=== PATIENT | male | born 1980 | race African-American/Black ===

== ENCOUNTER 2016-10-26 12:57 | Emergency (ER) | payer OTHER ==
[~2016-10-26] VITALS: Ht 180.3 cm; Wt 104.3 kg
[~2016-10-26 12:57] MED LIST: AZITHROMYCIN250 MG ORAL; CIPROFLOXACIN500 M2 ORAL
[2016-10-26] MEDS ORDERED: NORCO 5-325 TA1 EAC1 ORAL (14:28)
[2016-10-26] MEDS ORDERED: IBUPROFEN600 MG ORAL (14:28)
[2016-10-26 14:42] VITALS: BP 149/97
--- NOTE | 2016-10-26 15:40 | Emergency Room Report ---
History of Present Illness General Chief Complaint: Lower Extremity Injury Source: Patient Present Illness HPI The patient is a 36-year-old male presenting with left foot pain which began 2 days prior. He states that a heavy TV fell onto his foot from waist height. He noticed pain and swelling to the area. It is now described as a 7/10 dull ache and does not radiate. Pain worse with walking and touch. He denies previous injury to the area. he denies any numbness or tingling. He denies any other symptoms including N, V, F, chills, rash, calf pain, among others Allergies: Coded Allergies: No Known Allergies (Unverified , 01/28/15) Patient History Past Medical History: see triage record Pertinent Family History: none Reviewed Nursing Documentation: PMH: Agreed, PSxH: Agreed Nursing Documentation-PMH Hx Hypertension: Yes Hx Diabetes: Yes Review of Systems All Other Systems: negative except mentioned in HPI Physical Exam Vital Signs Date Time Temp Pulse Resp B/P Pulse Ox O2 Delivery O2 Flow Rate FiO2 10/26/16 13:01 97.5 98 14 149/97 100 Room Air Sp02 EP Interpretation: reviewed, normal General Appearance: no apparent distress, alert, GCS 15, non-toxic Head: normocephalic, atraumatic Eyes: bilateral eye PERRL, bilateral eye normal inspection ENT: hearing grossly normal, normal pharynx, no angioedema, normal voice Musculoskeletal: normal range of motion, no calf tenderness, swelling, tender - TTP over the L lateral foot Neurologic: alert, oriented x3, responsive, motor strength/tone normal, sensory intact, speech normal Psychiatric: judgement/insight normal, memory normal, mood/affect normal, no suicidal/homicidal ideation Skin: normal color, warm/dry, well hydrated Procedures Splinting Splinting : Consent: Verbal Location: L foot Hand-Made Type: plaster Splint: poserior short Pre-Proc Neuro Vasc Exam: normal Post-Proc Neuro Vasc Exam: normal Patient Tolerated: Well Complications: None Medical Decision Making PA Attestation Dr. Hopkins is my supervising physician. Patient management was discussed with my supervising physician Diagnostic Impression: Primary Impression: Foot fracture, left Qualified Codes: S92.902A - Unspecified fracture of left foot, initial encounter for closed fracture ER Course The patient is a 36-year-old male presenting with left foot pain Ddx considered include but not limited to sprain/strain, fracture, contusion PE: vitals WNL. NAD L foot: TTP with overlying edema to the L lateral foot. Full AROM of ankle and legs Xray shows chip fracture of the cuboid He is given pain medication and a short leg posterior splint placed with crutches he will followup with PMD. ER precautions given Other X-Ray Diagnostic Results Other X-Ray Diagnostic Results : X-Ray Ordered: L foot Date: October 26, 2016 EP Interpretation: Yes Findings: no dislocation, no soft tissue swelling, other - chip fracture of the cuboid Number of Views: 3 PA Scribe Text I am acting as scribe for my supervising physician. My supervising physician's interpretation of the L foot xrays are there are is a fracture of the cuboid Last Vital Signs Date Time Temp Pulse Resp B/P Pulse Ox O2 Delivery O2 Flow Rate FiO2 10/26/16 14:42 97.5 14 149/97 100 Room Air 10/26/16 13:01 98 Status: improved Disposition: HOME, SELF-CARE Condition: Improved Scripts Hydrocodone Bit/Acetaminophen 5-325* (NORCO 5-325 TABLET*) 1 Each Tablet 1 TAB ORAL Q6HR Y for For Pain, #10 TAB Prov: SHELBY GUILLEN 10/26/16 Ibuprofen* (MOTRIN*) 600 Mg Tablet 600 MG ORAL Q8H Y for For Pain, #30 TAB 0 Refills Prov: SHELBY GUILLEN.A. 10/26/16 Patient Instructions: Toe Fracture, Cast or Splint Care Additional Instructions: I discussed my findings with the patient. All questions and concerns have been answered. Treatment and medication compliance have been addressed. I advised the patient that they need to follow up with PMD in 3-5 days. Return to ED if pain remains or worsens, numbness or tingling occurs, new rash is noticed, fever is noticed, or if needed for any reason. Patient verbalized understanding of discharge instructions. SHELBY GUILLEN October 26, 2016 15:40
--- NOTE | 2016-10-27 10:08 | Diagnostic Imaging Report ---
Indication: PAIN, swelling, trauma status post heavy object dropped on foot 3 days ago Technique: 3 views left foot Comparison: none Findings: No acute fractures. No dislocations. The joint spaces are preserved. No radiopaque foreign body. There are vascular calcifications. Impression: No acute bony trauma
== END 2016-10-26 14:46 | disposition home or self-care (01) ==
LOC: EMR 13:22
DX: S92.902A Unspecified fracture of left foot, initial encounter for closed fracture (principal); W22.8XXA Striking against or struck by other objects, initial encounter; Y92.89 Other specified places as the place of occurrence of the external cause; I10 Essential (primary) hypertension; E11.9 Type 2 diabetes mellitus without complications
CPT/HCPCS: 29515; 99284

== ENCOUNTER 2019-01-05 20:29 | Emergency (ER) | payer MEDICARE, MEDICAID ==
[~2019-01-05] VITALS: Ht 177.8 cm; Wt 95.3 kg
[~2019-01-05 20:29] MED LIST changes: +IBUPROFEN600 MG ORAL; +NORCO 5-325 TA1 EAC1 ORAL
--- NOTE | 2019-01-05 21:26 | Emergency Room Report ---
History of Present Illness General Chief Complaint: Pain Source: Patient, Medical Record Present Illness HPI 38-year-old male with history of renal failure on hemodialysis. He presents with left ankle pain. He said that he stepped into a hole in the street after he got home from dialysis. He said he hurt it somewhat but today woke up and is more swollen and there is some fluid blister to the ankle area. Worse with walking. Pain is 7 out of 10. No fever chills but no drainage. Allergies: Coded Allergies: No Known Allergies (Unverified , 01/28/15) Patient History Past Medical History: see triage record, old chart reviewed, HTN, renal disease , dialysis Past Surgical History: other Pertinent Family History: none Social History: Denies: smoking Immunizations: other Reviewed Nursing Documentation: PMH: Agreed; PSxH: Agreed Nursing Documentation-PMH Hx Hypertension: Yes Hx Diabetes: Yes Review of Systems Eye: Denies: eye pain, blurred vision ENT: Denies: ear pain, nose congestion, throat swelling Respiratory: Denies: cough, shortness of breath Cardiovascular: Denies: chest pain, palpitations Gastrointestinal: Denies: abdominal pain, diarrhea, nausea, vomiting Musculoskeletal: Reports: joint pain, joint swelling; Denies: back pain Skin: Denies: rash Neurological: Denies: headache, numbness Endocrine: Denies: increased thirst, increased urine Hematologic/Lymphatic: Denies: easy bruising All Other Systems: negative except mentioned in HPI Physical Exam Vital Signs Date Time Temp Pulse Resp B/P (MAP) Pulse Ox O2 Delivery O2 Flow Rate FiO2 01/05/19 21:15 98.6 71 18 190/108 (135) 99 Room Air Vitals with high blood pressure Sp02 EP Interpretation: reviewed, normal General Appearance: well appearing, no apparent distress, alert Head: normocephalic, atraumatic Eyes: bilateral eye PERRL, bilateral eye EOMI ENT: hearing grossly normal, normal pharynx Neck: full range of motion, supple, no meningismus Respiratory: chest non-tender, lungs clear, normal breath sounds Cardiovascular #1: regular rate, rhythm, no murmur Gastrointestinal: normal bowel sounds, non tender, no mass, no organomegaly, no bruit, non-distended Musculoskeletal: back normal, normal range of motion, other - left Ankle: Edema and fluid blister to the lateral aspect. Pulse normal. Psychiatric: mood/affect normal Medical Decision Making Diagnostic Impression: Primary Impression: Left ankle sprain Qualified Codes: S93.402A - Sprain of unspecified ligament of left ankle, initial encounter Additional Impression: Hypertension Qualified Codes: I10 - Essential (primary) hypertension ER Course Patient with an ankle sprain and edema to the ankle. No fracture dislocation. No evidence of any infection. Blood pressure improved. Will discharge home. Other X-Ray Diagnostic Results Other X-Ray Diagnostic Results : X-Ray ordered: Left ankle x-rays # of Views/Limited Vs Complete: 3 View Indication: Pain EP Interpretation: Yes Interpretation: no dislocation, no soft tissue swelling, no fractures Impression: No acute disease Electronically Signed by: León Tiwari MD Last Vital Signs Date Time Temp Pulse Resp B/P (MAP) Pulse Ox O2 Delivery O2 Flow Rate FiO2 01/05/19 21:15 98.6 71 18 190/108 (135) 99 Room Air Status: improved Disposition: HOME, SELF-CARE Condition: Stable Additional Instructions: Follow-up with your doctor in 7 days. Elevate ankle. Ice pack to the area. Return if worse. León Tiwari MD Jan 05, 2019 21:26
[2019-01-05] MEDS ORDERED: HYDROcodone/Acetamin 5/325 tab ORAL ONE (21:30)
--- NOTE | 2019-01-05 21:58 | Diagnostic Imaging Report ---
EXAM: XR Left Ankle Complete, 3 or More Views CLINICAL HISTORY: TRAUMA TECHNIQUE: Frontal, lateral and oblique views of the left ankle. COMPARISON: No relevant prior studies available. FINDINGS: Bones/joints: No acute fracture or traumatic malalignment. Soft tissues: Moderate swelling of the lateral malleolus. Vasculature: Vascular calcifications. IMPRESSION: 1. No acute fracture or traumatic malalignment. 2. Moderate swelling of the lateral malleolus.
[2019-01-05 22:15] VITALS: BP 192/93
== END 2019-01-05 22:15 | disposition home or self-care (01) ==
LOC: EMR 22:00
DX: S93.402A Sprain of unspecified ligament of left ankle, initial encounter (principal); I10 Essential (primary) hypertension; X58.XXXA Exposure to other specified factors, initial encounter; Y92.9 Unspecified place or not applicable; I12.9 Hypertensive chronic kidney disease with stage 1 through stage 4 chronic kidney disease, or unspecified chronic kidney disease; E11.22 Type 2 diabetes mellitus with diabetic chronic kidney disease; N18.9 Chronic kidney disease, unspecified; Z99.2 Dependence on renal dialysis
CPT/HCPCS: 99283

== ENCOUNTER 2020-06-28 05:21 | Emergency (ER) | payer MEDICARE, MEDICAID ==
[~2020-06-28] VITALS: Ht 180.3 cm; Wt 97.5 kg
--- NOTE | 2020-06-28 05:30 | NUR ---
ED Nurse Note: pt comes into the ED with , c/o generalized abdominal pain after 7 days of constipation. Pt was in [facility] for 2 weeks, 1 week ago due to covid symptoms. since leaving the hospital, pt has been constipated. pt is a dialysis pt on MWF. pt resting comfortably on stretcher, has hypertension, otherwise VS wNL. Line established: 20g in left AC, labs drawn and sent to lab. awaiting transport to [place]. will continue to monitor.
[2020-06-28] MEDS ORDERED: Fleet's Enema 133ml RECTAL ONE (05:45)
--- NOTE | 2020-06-28 05:49 | Emergency Room Report ---
History of Present Illness General Chief Complaint: Abdominal Pain Source: Patient (León Tiwari MD) Present Illness HPI This is a 40-year-old male with a history of high blood pressure diabetes and renal failure on hemodialysis. His hemodialysis days are Monday, Monday, and Monday. He presents with chief complaint of constipation abdominal pain. Onset for a week. He was admitted to [facility] for 2-1/2 weeks for Covid infection. He was discharged 8 days ago. He said he has not had a bowel movement for a week now. He was getting pain medication while he was in the hospital. His pain is now 5 out of 10. He tried lyvh-lay-dvojiky medication without any relief. Still has body aches and lack of taste. His smell was is coming back. He denies any fever chills but no cough or congestion. Nothing made it better. Nothing made it worse. (León Tiwari MD) Allergies: Coded Allergies: No Known Allergies (Unverified , 01/28/15) COVID-19 Screening Contact w/high risk pt: Yes Experienced COVID-19 symptoms?: Yes COVID-19 Testing performed COMPLAINT SPECIALIST: Yes - 1 week ago COVID-19 Screening: Negative COVID-19 COVID-19 Testing Source: nasal (León Tiwari MD) Patient History Past Medical History: see triage record, old chart reviewed, DM, HTN, renal disease, dialysis Past Surgical History: other Pertinent Family History: none Social History: Denies: smoking Immunizations: other Reviewed Nursing Documentation: PMH: Agreed; PSxH: Agreed (León Tiwari MD) Nursing Documentation-PMH Hx Hypertension: Yes Hx Diabetes: Yes Hx Dialysis: Yes - M,W,F (León Tiwari MD) Review of Systems Eye: Denies: eye pain, blurred vision ENT: Denies: ear pain, nose congestion, throat swelling Respiratory: Denies: cough, shortness of breath Cardiovascular: Denies: chest pain, palpitations Gastrointestinal: Reports: abdominal pain, constipation; Denies: diarrhea, nausea, vomiting Musculoskeletal: Denies: back pain, joint pain Skin: Denies: rash Neurological: Denies: headache, numbness Endocrine: Denies: increased thirst, increased urine Hematologic/Lymphatic: Denies: easy bruising All Other Systems: negative except mentioned in HPI (León Tiwari MD) Physical Exam Vital Signs Date Time Temp Pulse Resp B/P (MAP) Pulse Ox O2 Delivery O2 Flow Rate FiO2 06/28/20 05:27 98.2 107 20 175/93 (120) 97 Room Air Vitals with high blood pressure Sp02 EP Interpretation: reviewed, normal General Appearance: well appearing, no apparent distress, alert Head: normocephalic, atraumatic Eyes: bilateral eye PERRL, bilateral eye EOMI ENT: hearing grossly normal, normal pharynx Neck: full range of motion, supple, no meningismus Respiratory: chest non-tender, lungs clear, normal breath sounds Cardiovascular #1: regular rate, rhythm, no murmur Gastrointestinal: normal bowel sounds, non tender, no mass, no organomegaly, no bruit, non-distended Musculoskeletal: back normal, normal range of motion, gait/station normal Psychiatric: mood/affect normal (León Tiwari MD) Medical Decision Making Diagnostic Impression: Primary Impression: Constipation Qualified Codes: K59.00 - Constipation, unspecified Additional Impressions: Abdominal pain Qualified Codes: R10.84 - Generalized abdominal pain Hypertension Qualified Codes: I10 - Essential (primary) hypertension End stage renal disease on dialysis ER Course This patient presents with abdominal pain. Most likely secondary to constipation. His constipation is probably secondary to steroid use and hospitalization. Patient has not taken his morning blood pressure medication yet. CT scan is pending to rule out obstruction or other pathology. Will sign out labs and CT scan to Dr. Ayon. (León Tiwari MD) ER Course Please see above note. Patient states unable to move his bowels for 1 week. Attempted Fleet enema. He said the stool was still blocking able to come out. RN manually disimpacted patient. After disimpaction the patient felt he was going to pass out. He was returned to the room and placed on a monitor. Vital signs are stable at that time the patient had some shaking but did not lose consciousness. (It was more like chills.) Large amount of hard stool was obtained with disimpaction. Patient with improvement in decreased pain. Labs reviewed. Normal white count. Anemia. Elevated BUN and creatinine. CT with evidence of constipation and small kidneys and groundglass appearance of the lungs. BP high. Inessa PO well. Did not take BP meds today. Given Clonidine. Orthostatics performed. No change in pulse. Improved and stable for outpatient observation and treatment. Laboratory Tests Test 06/28/20 05:50 White Blood Count 5.1 K/UL (4.8-10.8) Red Blood Count 3.54 M/UL (4.70-6.10) L Hemoglobin 8.8 G/DL (14.2-18.0) L Hematocrit 29.0 % (42.0-52.0) L Mean Corpuscular Volume 82 FL (80-99) Mean Corpuscular Hemoglobin 24.9 PG (27.0-31.0) L Mean Corpuscular Hemoglobin Concent 30.4 G/DL (32.0-36.0) L Red Cell Distribution Width 15.6 % (11.6-14.8) H Platelet Count 114 K/UL (150-450) L Mean Platelet Volume 6.8 FL (6.5-10.1) Neutrophils (%) (Auto) 59.0 % (45.0-75.0) Lymphocytes (%) (Auto) 23.6 % (20.0-45.0) Monocytes (%) (Auto) 13.1 % (1.0-10.0) H Eosinophils (%) (Auto) 2.8 % (0.0-3.0) Basophils (%) (Auto) 1.4 % (0.0-2.0) Sodium Level 141 MMOL/L (136-145) Potassium Level 4.7 MMOL/L (3.5-5.1) Chloride Level 101 MMOL/L (98-107) Carbon Dioxide Level 31 MMOL/L (21-32) Anion Gap 9 mmol/L (5-15) Blood Urea Nitrogen 43 mg/dL (7-18) H Creatinine 15.0 MG/DL (0.55-1.30) H Estimated Glomerular Filtration Rate 4.4 mL/min (>60) Glucose Level 202 MG/DL (74-106) H Calcium Level 8.7 MG/DL (8.5-10.1) Total Bilirubin 0.5 MG/DL (0.2-1.0) Aspartate Amino Transferase (AST) 16 U/L (15-37) Alanine Aminotransferase (ALT) 35 U/L (12-78) Alkaline Phosphatase 79 U/L (46-116) Total Protein 6.8 G/DL (6.4-8.2) Albumin 3.3 G/DL (3.4-5.0) L Globulin 3.5 g/dL Albumin/Globulin Ratio 0.9 (1.0-2.7) L Lipase 198 U/L (73-393) (Warren Ayon MD) Rhythm Strip Diag. Results EP Interpretation: yes Rhythm: no PVC's, no ectopy, other - ST (Warren Ayon MD) CT/MRI/US Diagnostic Results CT/MRI/US Diagnostic Results : Imaging Test Ordered: Abdomen pelvis Impression 1. There are mild patchy bibasilar ground glass alveolar infiltrates most consistent with pneumonia, likely Covid 19. 2. There is mild to moderate constipation. 3. 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 The right kidney measures 8 cm in length while the left kidney measures 7.5 cm in length. No obstructive uropathy. (Warren Ayon MD) Last Vital Signs Date Time Temp Pulse Resp B/P (MAP) Pulse Ox O2 Delivery O2 Flow Rate FiO2 06/28/20 05:27 98.2 107 20 175/93 (120) 97 Room Air (León Tiwari MD) Last Vital Signs Date Time Temp Pulse Resp B/P (MAP) Pulse Ox O2 Delivery O2 Flow Rate FiO2 06/28/20 08:58 98.0 110 20 187/100 100 Room Air Status: improved (Warren Ayon MD) Disposition: HOME, SELF-CARE Condition: Improved Scripts Lactulose (LACTULOSE*) 20 Gm/30 Ml Solution 30 ML ORAL BID PRN for Constipation, #240 ML 1 Refill Prov: Warren Ayon MD 06/28/20 Referrals: NOT CHOSEN IPA/,REFERRING (PCP) León Tiwari MD Jun 28, 2020 05:49 Warren Ayon MD Jun 28, 2020 06:49
[2020-06-28 06:09] VITALS: BP 187/106
[2020-06-28 06:19] LABS: BASOPHILS % (AUTO) 1.4 % (0.0-2.0); EOSINOPHILS % (AUTO) 2.8 % (0.0-3.0); HEMOGLOBIN 8.8 G/DL (14.2-18.0); LYMPHOCYTES % (AUTO) 23.6 % (20.0-45.0); MEAN CORPUSCULAR VOLUME 82 FL (80-99); MONOCYTES % (AUTO) 13.1 % (1.0-10.0); PLATELET COUNT 114 K/UL (150-450); RED BLOOD COUNT 3.54 M/UL (4.70-6.10); RED CELL DISTRIBUTION WIDTH 15.6 % (11.6-14.8); WHITE BLOOD COUNT 5.1 K/UL (4.8-10.8)
--- NOTE | 2020-06-28 06:44 | Diagnostic Imaging Report ---
EXAM: CT Abdomen and Pelvis Without Intravenous Contrast CLINICAL HISTORY: ABD PAIN TECHNIQUE: Axial computed tomography images of the abdomen and pelvis without intravenous contrast. CTDI is 9.5 mGy and DLP is 517.7 mGy-cm. One or more of the following dose reduction techniques were used: automated exposure control, adjustment of the mA and/or kV according to patient size, use of iterative reconstruction technique. COMPARISON: 07/25/15 FINDINGS: Lung bases: There are mild patchy bibasilar ground glass alveolar infiltrates most consistent with pneumonia, likely Covid 19. ABDOMEN: Liver: Unremarkable. Gallbladder and bile ducts: Unremarkable. No calcified stones. No ductal dilation. Pancreas: Unremarkable. No ductal dilation. Spleen: Unremarkable. No splenomegaly. Adrenals: Unremarkable. No mass. 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 The right kidney measures 8 cm in length while the left kidney measures 7.5 cm in length. No obstructive uropathy. Stomach and bowel: There is mild to moderate constipation. No obstruction. No mucosal thickening. PELVIS: Appendix: No findings to suggest acute appendicitis. Bladder: Unremarkable. No stones. Reproductive: Unremarkable as visualized. ABDOMEN and PELVIS: Intraperitoneal space: Unremarkable. No free air. No significant fluid collection. Bones/joints: No acute fracture. No dislocation. Soft tissues: There is ovoid calcification of the left inguinal region consistent with calcific psoas bursitis/tendinitis. Vasculature: Unremarkable. No abdominal aortic aneurysm. Lymph nodes: Unremarkable. No enlarged lymph nodes. IMPRESSION: 1. There are mild patchy bibasilar ground glass alveolar infiltrates most consistent with pneumonia, likely Covid 19. 2. There is mild to moderate constipation. 3. 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 The right kidney measures 8 cm in length while the left kidney measures 7. 5 cm in length. No obstructive uropathy.
[2020-06-28 06:46] LABS: CALCIUM 8.7 MG/DL (8.5-10.1); POTASSIUM 4.7 MMOL/L (3.5-5.1)
[2020-06-28 06:51] LABS: ALBUMIN 3.3 G/DL (3.4-5.0); ALBUMIN/GLOBULIN RATIO 0.9 (1.0-2.7); BILIRUBIN,TOTAL 0.5 MG/DL (0.2-1.0)
--- NOTE | 2020-06-28 07:04 | NUR ---
ED Nurse Note: pt returned from CT, administered fleet enema. pt went to the restroom and was compacted. manually disimpacted pt. pt started to get nauseous. brought pt back to him room via wheelchair. pt now resting comfortably on stretcher. pain has reduced significantly after disimpaction. made aware. will continue to monitor.
[2020-06-28 07:08] VITALS: BP 162/92
[2020-06-28] MEDS ORDERED: LACTULOSE20 GM/301 ORAL (07:18)
--- NOTE | 2020-06-28 07:21 | NUR ---
Received patient laying semi-Garcia in bed. AAOX4. Continent of B/B. ADLs Denies pain at present but reports chills which can be visibly seen. V/S elevated 172/100 to which MD was made aware. Per MD, patient's blood pressure has been slightly elevated since arrival. New order for orthostatic B/P obtained.
[2020-06-28 07:31] VITALS: BP 184/100
[2020-06-28 07:34] VITALS: BP 171/100
[2020-06-28 07:35] VITALS: BP 155/75
--- NOTE | 2020-06-28 07:38 | NUR ---
Orthostatics completed
[2020-06-28] MEDS ORDERED: Metoprolol Succinate XL 50mg tab ORAL ONE (08:00)
[2020-06-28 08:58] VITALS: BP 187/100
== END 2020-06-28 08:50 | disposition home or self-care (01) ==
LOC: EMR 05:41
DX: K59.00 Constipation, unspecified (principal); R10.9 Unspecified abdominal pain; I12.0 Hypertensive chronic kidney disease with stage 5 chronic kidney disease or end stage renal disease; E11.22 Type 2 diabetes mellitus with diabetic chronic kidney disease; N18.6 End stage renal disease; Z99.2 Dependence on renal dialysis
CPT/HCPCS: 36415; 74176; 80053; 83690; 85025; 96374; 99284; J0360

== ENCOUNTER 2020-07-20 22:15 | Emergency (ER) | payer MEDICARE, MEDICAID ==
[~2020-07-20] VITALS: Ht 180.3 cm; Wt 101.6 kg
[~2020-07-20 22:15] MED LIST changes: +LACTULOSE20 GM/301 ORAL
--- NOTE | 2020-07-20 22:30 | NUR ---
ED Nurse Note: Recievedpt walk in from home with c/o chronic constipation, pt has c/o being constipated and fecal impaction, pt takes stool softners but states they dont work, denies taking pain meds, cp, sob, fevers, or any other complaints, ptis dialysis pt and no complaints.
--- NOTE | 2020-07-20 22:50 | Emergency Room Report ---
History of Present Illness General Chief Complaint: Constipation Source: Patient Present Illness HPI Patient is a 40-year-old male presents for increased constipation. Reports having increased hard stools. Had previously been placed on lactulose as well as other medications for constipation. Had prior history of coronavirus infection and had somewhat diminished appetite since then. Denies any shortness of breath currently. He is normally dialyzed Monday. Denies any other current complaints. No vomiting. Denies any fever. Allergies: Coded Allergies: No Known Allergies (Unverified , 01/28/15) COVID-19 Screening Contact w/high risk pt: No Experienced COVID-19 symptoms?: No COVID-19 Testing performed SKIP MINER BLASTING: Yes COVID-19 Screening: Negative COVID-19 COVID-19 Testing Source: RESEARCH LAB ASSISTANT Patient History Past Medical History: see triage record Reviewed Nursing Documentation: PMH: Agreed; PSxH: Agreed Nursing Documentation-PMH Past Medical History: No History, Except For Hx Hypertension: Yes Hx Diabetes: Yes Hx Dialysis: Yes - M,W,F Review of Systems All Other Systems: negative except mentioned in HPI Physical Exam Vital Signs Date Time Temp Pulse Resp B/P (MAP) Pulse Ox O2 Delivery O2 Flow Rate FiO2 07/20/20 22:21 98.2 100 16 169/98 (121) 96 Room Air Sp02 EP Interpretation: reviewed, normal General Appearance: normal inspection, well appearing, no apparent distress, alert, GCS 15 Head: atraumatic ENT: normal ENT inspection, hearing grossly normal, normal voice Neck: normal inspection, full range of motion, supple, no bony tend Respiratory: normal inspection, lungs clear, normal breath sounds, no respiratory distress, no retraction, no wheezing Cardiovascular #1: regular rate, rhythm, no edema Gastrointestinal: normal inspection, normal bowel sounds, non tender, soft, no guarding, no hernia Genitourinary: no CVA tenderness Musculoskeletal: normal inspection, back normal, normal range of motion Neurologic: alert, motor strength/tone normal, hands hanger III-XII nml as tested, oriented x3, responsive, speech normal, normal inspection Psychiatric: normal inspection, judgement/insight normal, mood/affect normal Medical Decision Making Diagnostic Impression: Primary Impression: Constipation ER Course Patient presents for constipation. Differential diagnosis include was not limited to constipation, fecal impaction, ileus among others. Patient has a benign exam and does not appear to require any imaging or laboratory testing at this time. Patient appears to have constipation related to medications. He was advised to discontinue codeine. He does not appear to be impacted at this time. He was given prescription for medications for symptomatic management. Was advised to follow-up with his primary care physician for recheck. This medical record is generated with [employer] access analyst software. There may be some access analyst discrepancies related to use of this software Last Vital Signs Date Time Temp Pulse Resp B/P (MAP) Pulse Ox O2 Delivery O2 Flow Rate FiO2 07/20/20 22:21 98.2 100 16 169/98 (121) 96 Room Air Status: unchanged Disposition: HOME, SELF-CARE Condition: Stable Scripts Polyethylene Glycol 3350* (POLYETHYLENE GLYCOL 3350*) 17 Gm Powd.pack 17 GM ORAL DAILY, #120 PACKET Prov: Aris Mayer MD 07/20/20 Docusate Sodium* (COLACE*) 100 Mg Capsule 100 MG ORAL TWICE A DAY, #30 CAP Prov: Aris Mayer MD 07/20/20 Aris Mayer MD Jul 20, 2020 22:50
[2020-07-20] MEDS ORDERED: POLYETHYLENE GL17 GM ORAL (22:54)
[2020-07-20] MEDS ORDERED: COLACE100 MG ORAL (22:54)
[2020-07-20 23:00] VITALS: BP 169/98
--- NOTE | 2020-07-20 23:00 | NUR ---
ER DISCHARGE NOTE: Patient is cleared to be discharged per ERMD, pt is aox4, on room air, with stable vital signs. pt was given dc and prescription instructions, pt was able to verbalize understanding, pt id band removed without complications. pt is able to ambulate with steady gait. pt took all belongings.
== END 2020-07-20 23:00 | disposition home or self-care (01) ==
LOC: EMR 22:40
DX: K59.00 Constipation, unspecified (principal); I10 Essential (primary) hypertension; E11.9 Type 2 diabetes mellitus without complications
CPT/HCPCS: 99282

== ENCOUNTER 2020-07-22 01:04 | Emergency (ER) | payer MEDICARE, MEDICAID ==
[~2020-07-22] VITALS: Ht 180.3 cm; Wt 99.8 kg
[~2020-07-22 01:04] MED LIST changes: +COLACE100 MG ORAL; +POLYETHYLENE GL17 GM ORAL
--- NOTE | 2020-07-22 01:20 | NUR ---
ED Nurse Note: pt brought in with complaints of constipation hx of kidney failuire pt is AOx4, ambulatory
--- NOTE | 2020-07-22 01:25 | Emergency Room Report ---
History of Present Illness General Chief Complaint: Constipation Source: Patient Present Illness HPI Disclaimer: Please note that this report is being documented using DRAGON technology. This can lead to erroneous entry secondary to incorrect interpretation by the dictating instrument. HPI: 40-year-old male presents for constipation. Symptoms have been present several weeks since getting out of the hospital. He had been using Tylenol with codeine but is no longer using it. He was seen at this emergency department twice and at [facility] last night with similar complaints. He states the enema that was performed here helped and is requesting another enema. He has been using MiraLAX and docusate without significant improvement. He reports abdominal distention and no bowel movement for the past few days. He denies nausea or vomiting. Denies fever or chills. Denies history of abdominal surgery. PMH: Diabetes, hypertension, ESRD on hemodialysis PSH: Fistula Allergies: Reviewed Social Hx: Reviewed Allergies: Coded Allergies: No Known Allergies (Unverified , 01/28/15) COVID-19 Screening Contact w/high risk pt: No Experienced COVID-19 symptoms?: No COVID-19 Testing performed [employer]: Yes - 07/16/20 COVID-19 Screening: Negative COVID-19 COVID-19 Testing Source: dialysis Nursing Documentation-PMH Past Medical History: No History, Except For Hx Hypertension: Yes Hx Diabetes: Yes Hx Dialysis: Yes - M,W,F Review of Systems All Other Systems: negative except mentioned in HPI Physical Exam Vital Signs Date Time Temp Pulse Resp B/P (MAP) Pulse Ox O2 Delivery O2 Flow Rate FiO2 07/22/20 01:09 98.8 104 18 206/120 (148) 95 Room Air General: Awake and alert, no acute distress HEENT: NC/AT. EOMI. Resp: Normal work of breathing Abdomen: Soft, mild tenderness to lower quadrants, no peritoneal signs. Not significantly distended Skin: Intact. No abrasions, laceration or rash over the exposed skin MSK: Normal tone and bulk. Moving all extremities. No obvious deformity. Neuro: Awake and alert. Mentating appropriately Sp02 EP Interpretation: reviewed Medical Decision Making Diagnostic Impression: Primary Impression: Constipation ER Course 40-year-old male presents with constipation. Recent labs were within normal limits. He is no longer taking the Tylenol with codeine. X-ray of the abdomen does not show evidence of bowel obstruction. Moderate stool burden. Patient received enema and had multiple large bowel movements. He feels much better. Will continue MiraLAX at home. Instructed to follow-up with PMD for referral to GI if symptoms persist. Other X-Ray Diagnostic Results Other X-Ray Diagnostic Results : X-Ray ordered: Abdomen # of Views/Limited Vs Complete: 1 View Indication: Pain EP Interpretation: Yes Interpretation: nonspecific bowel gas, no sbo, other - Moderate stool burden Impression: Other - Moderate stool burden Electronically Signed by: Electronically signed by Dr. Thai Johns MD Last Vital Signs Date Time Temp Pulse Resp B/P (MAP) Pulse Ox O2 Delivery O2 Flow Rate FiO2 07/22/20 01:09 98.8 104 18 206/120 (148) 95 Room Air Disposition: HOME, SELF-CARE Condition: Improved Thai Johns MD Jul 22, 2020 01:25
[2020-07-22] MEDS ORDERED: Fleet's Enema 133ml RECTAL ONE (02:00)
--- NOTE | 2020-07-22 02:30 | NUR ---
pt was given fleet enema to relieve impaction, pt able to get relief from large amount of stool expelled
[2020-07-22 03:00] VITALS: BP 162/88
--- NOTE | 2020-07-22 09:43 | Diagnostic Imaging Report ---
Indication: Reason For Exam: ABD PAIN Technique: XRAY Abdomen 1v Comparison: None. Findings: There is moderate fecal material in the colon. Bowel gas pattern is nonobstructive. No gross free fluid or gross free air. Osseous structures are unremarkable. Impression: Moderate fecal material in the colon. Otherwise negative.
== END 2020-07-22 03:00 | disposition home or self-care (01) ==
LOC: EMR 01:25
DX: K59.00 Constipation, unspecified (principal); I12.0 Hypertensive chronic kidney disease with stage 5 chronic kidney disease or end stage renal disease; E11.22 Type 2 diabetes mellitus with diabetic chronic kidney disease; N18.6 End stage renal disease; Z99.2 Dependence on renal dialysis
CPT/HCPCS: 74018; 99283